=== PATIENT | female | born 1995 | race Caucasian/White ===

== ENCOUNTER 2024-10-26 18:49 | Observation (INO) ==
[2024-10-26] MEDS ORDERED: LACTATED RINGER'S 1,000 ML IV PRN (18:53)
--- NOTE | 2024-10-26 19:43 | History & Physical Report ---
Date of Service October 26, 2024 Assessment & Plan (1) with 30 completed weeks gestation: (2) Elevated blood pressure affecting in third trimester, antepartum: Plan Pressures are not and have not been in the severe range, although higher for her than typical. 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 She does not currently have any severe features. she does not have any other reasons for elevated transminases (ie hepatitis). she like has pet. Will be checking a protein /overhead crane truck loader ratio. Check bile acids given itchy hands/feet although these will not be back for 7-10 days. Could potentially have cholestasis that have elevated liver functions. fetus category one. No evidence of labor. Plan to repeat labs in 6 hours and see where trending and monitor blood pressures closely. If stable and not trending up, consider keepin g here and monitoring overnight, repeating labs every 6-12 hours. If trending up, will need to discuss with mfm and consider transfer. Explained situation to patient and her SO who express understanding of the situation. Do not have a good explanation of the 20 minutes of symptoms she had earlier. REsolved, have not recurred, imaging negative for neck/head issues. ? anxiety? Cannot explain elevated troponin either (although barely elevated ). If this continues to rise, will probably have to transfer to higher level of care considering . 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 She had her blood pressure taken at school and was found to be 151/101 at the highest. She notes at her last pnv her pressure was a bit high (134/87) and was advised to monitor her blood pressures. She presented to the Ed where her blood pressure was 150/90. Symptoms had resolved by time she was in ED. She had a neck and head CT both read negative. EKG showed sinus bradycardia. Labs showed h/h 14.9/43.1, plts 273, nl wbc, overhead crane truck loader 0.73, adt 55 (39, alt 96 (52). Troponin was drawn in the ED 16.7 (14). Pateint transferred to labor and delivery. Patient notes she feels well now with no complaints. She notes she did not have and does not have a villatoro, vision clear, no n/v today (but more nauseated over the weekend), some slight swelling at times in the ankles, fingers. She notes she has alot of itching in the hands and feet (not necessarily palms/soles). Notes no labor sx. Notes good fm. Patient notes that her mother has a hx of preeclampsia. Her has been otherwise uncomplicated. and Delivery Plans hepatitis b non immune OB Labs: Blood Type A Positive 05/28/24 Antibody Screen NEGATIVE 05/28/24 Hgb 12.8 g/dl (12.0-16.0) 10/09/24 Hct 36.7 % (37.0-47.0) L 10/09/24 MCV 89.7 fL (80.0-100.0) 05/28/24 Plt Count 476 K/uL (130-400) H 05/28/24 Rubella IgG Antibody Immune (Immune) 05/28/24 Treponema pallidum Ab Negative (Negative) 10/09/24 Hep Bs Antigen Negative (Negative) 05/28/24 Hepatitis C Antibody Negative (Negative) 05/28/24 HIV 1&2 Ab/P24 Ag 4thGn Negative (Negative) 05/28/24 Glucose 1 Hr 50 gm 158 mg/dl (70-130) H 10/09/24 OB Optional Labs: Chlamydia trachomatis RNA Not Detected (NotDetected) 05/28/24 Neisseria gonorrhoeae RNA Not Detected (NotDetected) 05/28/24 Labs Reviewed: Declines genetics--mln 28 week 2 hr gtt wnl Allergies Allergy/AdvReac Type Severity Reaction Status Date / Time meperidine [From Demerol] Allergy Intermediate Rash Verified 10/26/24 18:17 Home Medications Medication Instructions Recorded Confirmed Type azelastine 137 mcg (0.1 %) nasal 1 spray intranasal BID 10/26/24 10/26/24 History spray citalopram 10 mg tablet 10 mg PO HS 10/26/24 10/26/24 History fluticasone propionate 50 1 spray intranasal BID 10/26/24 10/26/24 History mcg/actuation nasal spray,suspension vits,calcium 21-iron fum 1 tab PO HS 10/26/24 10/26/24 History 14 mg iron-folic acid 400 mcg tablet ( Complete) Patient History Medical History (Updated 10/26/24 @ 19:52 by Dawna Flores MD, FACOG) Pap smear vag w ASC-US Seasonal allergies Sinus infection Depression with anxiety Varicella Surgical History S/P tooth extraction some baby teeth pulled S/P wisdom tooth extraction S/P tonsillectomy Family History Mother Breast calcifications Grandmother (Maternal) Osteoporosis Diabetes Coronary heart disease Myocardial infarction Hypertension Dementia Kidney disease Grandfather (Maternal) Diabetes Hypertension Kidney disease Father Depression Denies family history of Ovarian cancer Breast cancer Colorectal cancer Social History Smoking Status: Never smoker Second Hand Exposure: No; Do You Dip or Chew Tobacco: No; Hx Alcohol Use: No Hx Substance Use: No Preferred Language: Sinhala 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 Beliefs That Will Affect Care: None marital status: marital status details: Lewis Ellsworth (31) [phone] Current Living Situation: Spouse Current Living Situation Comment: lives with spouse, dog current occupational status: employed 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 Other Information That Helps Us Care for You: No Feels Safe at Home: Yes Safety Concerns: Feels Safe At This Time Assistive Devices: None OB History g1--present EXECUTIVE SOUS CHEF History noncontributory Physical Exam Constitutional: WD/WN, vitals as above Gastrointestinal (Abdomen): soft, gravid, nt no ruq pain Neurologic: patellar DTR's 2+ bilat, sensation intact (no clonus) Psychiatric: A+Ox3, euthymic affect Genitourinary: cx--deferred toco--none efm--120s with mod variability, accels present, no decels Results & Data Vital Signs (Past 12 Hours) Vital Signs Temp Pulse Resp BP 10/26/24 19:38 46 L 143/85 H 10/26/24 19:26 36.7 C 20 Coding Level of Care Code None Diagnoses with 30 completed weeks gestation Z3A.30 Elevated blood pressure affecting in third trimester, antepartum O16.3
[2024-10-26 20:45] LABS: Total Protein Urine Random 56.3 mg/dl (0-11.9)
[2024-10-26 20:50] LABS: Creatinine Urine Random 18.5 mg/dl
[2024-10-26 22:59] LABS: Basophils # (auto) 0.05 K/uL (0.00-0.20); Basophils % (auto) 0.5 %; Eosinophils # (auto) 0.08 K/uL (0.00-0.50); Eosinophils % (auto) 0.8 %; Hematocrit (blood only) 39.7 % (37.0-47.0); Hemoglobin 13.7 g/dl (12.0-16.0); Immature Granulocytes # (auto) 0.12 K/uL (0.01-0.20); Immature Granulocytes % (auto) 1.2 %; Lymphocytes # (auto) 2.69 K/uL (1.20-3.40); Lymphocytes % (auto) 27.4 %; Mean Corpuscular Hemoglobin 31.2 pg (25.0-34.0); Mean Corpuscular Hgb Conc 34.5 g/dL (32.0-36.0); Mean Corpuscular Volume 90.4 fL (80.0-100.0); Mean Platelet Volume 12.6 fL (9.4-12.4); Monocytes # (auto) 0.97 K/uL (0.11-0.59); Monocytes % (auto) 9.9 %; Neutrophils # (auto) 5.92 K/uL (1.40-6.50); Neutrophils % (auto) 60.2 %; Nucleated RBC # (auto) 0.18 K/uL (0.00-0.12); Nucleated RBC % (auto) 1.8 %; Platelet Count 247 K/uL (130-400); RDW Coefficient of Variation 14.1 % (11.5-14.5); RDW Standard Deviation 45.7 fL (36.4-46.3); Red Blood Count 4.39 M/uL (4.20-5.40); White Blood Count 9.83 K/ul (4.8-10.8)
[2024-10-26 23:16] LABS: Albumin Globulin Ratio 0.9 (0.9-2); Albumin Level 2.8 gm/dl (3.4-5.0); BUN Creatinine Ratio 15.6 (10-20); Bilirubin,Total 0.8 mg/dl (0.2-1.0); Calcium 8.9 mg/dl (8.6-10.3); Creatinine Clr Calc Pharmacy 121.8 ml/min; Potassium 3.6 mmol/L (3.5-5.1); Total Protein 5.8 gm/dl (6.0-8.3)
[2024-10-26 23:21] LABS: Troponin I High Sensitivity 15.7 pg/ml (0-14)
--- NOTE | 2024-10-26 23:34 | Obstetrical Progress Note ---
Date of Service October 26, 2024 Assessment & Plan (1) Pre-eclampsia during in third trimester, antepartum: Plan with prot/development rep of 3.0, has pet but does not have any severe features. Her lab values are all actually improved. Including troponin (denies ever having cp). Pressures are labile at times but mostly not in severe range, only one isolated. PLan continued observation. Repeat labs in 6 hours. Monitor bps closely. Fetus category one. Discussed the situation with the patient and SO and express understanding. If end up eventually d/c because not severe , will need close monitoring and labs potentially twice weekly. Understands that may not make it to term and if <35 weeks, will need transfer for NICU services. They are agreeable to the plan at present. Subjective Patient feels well. Denies and s/s of pet Pressures have been a bit labile but mostly good. 112/61-163/88 (isolated high) prot/development rep 3.0 repeat labs ast 95-->83 (52) alt 55-->46 (39) development rep--0.73-->0.64 troponin 16.7--> 15.7 plts 247 h/h--13.7/39.7 Physical Exam Constitutional: WD/WN, vitals as above Gastrointestinal (Abdomen): soft, gravid, nt, no ruq tenderness Neurologic: patellar DTR's 2+ bilat, sensation intact Psychiatric: A+Ox3, euthymic affect Genitourinary: toco--colton efm--130s wtih mod variability, accels to the 150s, no decels Results & Data Vital Signs (Past 12 Hours) Vital Signs Temp Pulse Resp BP 10/26/24 23:23 54 L 129/85 10/26/24 23:08 70 112/61 10/26/24 22:53 50 L 122/77 10/26/24 22:38 46 L 142/86 H 10/26/24 22:24 45 L 137/81 10/26/24 22:08 53 L 115/70 10/26/24 21:54 48 L 123/70 10/26/24 21:39 50 L 163/88 H 10/26/24 21:23 51 L 144/86 H 10/26/24 20:53 45 L 139/75 10/26/24 20:38 44 L 151/91 H 10/26/24 20:24 44 L 140/85 10/26/24 20:09 47 L 158/87 H 10/26/24 19:53 56 L 127/84 10/26/24 19:38 46 L 143/85 H 10/26/24 19:26 36.7 C 20 PG Care Time/CCT Total # of Minutes Spent Total Time Spent with Patient: Total time spent is greater than 50% in coordination of care (as documented) at patient's floor/unit and/or counseling patient: Coding Level of Care Code 01603 SUB INP/OBS CARE 07/18MIN Diagnoses Pre-eclampsia during in third trimester, antepartum O14.93
[2024-10-27 06:03] LABS: Hematocrit (blood only) 38.6 % (37.0-47.0); Hemoglobin 13.5 g/dl (12.0-16.0); Mean Corpuscular Hemoglobin 32.1 pg (25.0-34.0); Mean Corpuscular Volume 91.9 fL (80.0-100.0); Mean Platelet Volume 12.5 fL (9.4-12.4); Nucleated RBC # (auto) 0.15 K/uL (0.00-0.12); Nucleated RBC % (auto) 1.9 %; Platelet Count 244 K/uL (130-400); RDW Coefficient of Variation 14.3 % (11.5-14.5); RDW Standard Deviation 46.6 fL (36.4-46.3)
[2024-10-27 06:22] LABS: Albumin Globulin Ratio 0.9 (0.9-2); Albumin Level 2.6 gm/dl (3.4-5.0); BUN Creatinine Ratio 14.3 (10-20); Bilirubin,Total 0.8 mg/dl (0.2-1.0); Calcium 8.1 mg/dl (8.6-10.3); Creatinine Clr Calc Pharmacy 111.3 ml/min; Globulin 2.8 gm/dl (2.5-4.0); Potassium 3.7 mmol/L (3.5-5.1); Total Protein 5.4 gm/dl (6.0-8.3)
[2024-10-27 06:28] LABS: Troponin I High Sensitivity 12.6 pg/ml (0-14)
--- NOTE | 2024-10-27 07:13 | Obstetrical Progress Note ---
Date of Service October 27, 2024 Assessment & Plan (1) Pre-eclampsia during in third trimester, antepartum: Plan preeclampsia without severe sx. labs stable or slightly improved, not 2x normal. BPs very good overnight. She denies s/s. Fetus category one. Will feed patient this am and then see what her pressures do under evaluation and more activity. Disposition based on this. Given persistence of no severe features, could d/c home under very close obs--bp check and labs on . discussed that each visit would be a reevaluation and if she develops severe sx, would then transfer. She expresses understanding. Admission and Anticipated Discharge Date Admission Date: October 27, 2024 Subjective Patient feels well. Denies and s/s of pet. Rested overnight. Pressures have been a bit labile but mostly good. 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 Physical Exam Constitutional: WD/WN, vitals as above Cardiovascular: Extremities: + edema (tr); no calf tenderness Gastrointestinal (Abdomen): soft, gravid, nt no ruq pain Psychiatric: A+Ox3, euthymic affect Genitourinary: cx--deferred toco--colton efm--120s with mod variability, accels to 160s, no decels Results & Data Vital Signs (Past 12 Hours) Vital Signs Temp Pulse Resp BP 10/27/24 06:31 44 L 124/67 10/27/24 05:30 41 L 119/62 10/27/24 04:30 51 L 126/78 10/27/24 04:14 36.4 C L 10/27/24 03:30 64 108/69 10/27/24 02:30 67 103/67 10/27/24 01:30 73 101/61 10/27/24 00:30 60 91/58 L 10/26/24 23:33 36.7 C 10/26/24 23:23 54 L 129/85 10/26/24 23:08 70 112/61 10/26/24 22:53 50 L 122/77 10/26/24 22:38 46 L 142/86 H 10/26/24 22:24 45 L 137/81 10/26/24 22:08 53 L 115/70 10/26/24 21:54 48 L 123/70 10/26/24 21:39 50 L 163/88 H 10/26/24 21:23 51 L 144/86 H 10/26/24 20:53 45 L 139/75 10/26/24 20:38 44 L 151/91 H 10/26/24 20:24 44 L 140/85 10/26/24 20:09 47 L 158/87 H 10/26/24 19:53 56 L 127/84 10/26/24 19:38 46 L 143/85 H 10/26/24 19:26 36.7 C 20 PG Care Time/CCT Total # of Minutes Spent Total Time Spent with Patient: Total time spent is greater than 50% in coordination of care (as documented) at patient's floor/unit and/or counseling patient: Coding Level of Care Code 02594 OP VST EST LOW 20 MIN Diagnoses Pre-eclampsia during in third trimester, antepartum O14.93
[2024-10-27 08:20] VITALS: RESP 16; TEMP 98.2
[2024-10-27 10:47] VITALS: BP 120/82; PULSE 74
--- NOTE | 2024-10-27 11:12 | Obstetrical Progress Note ---
Date of Service October 27, 2024 Assessment & Plan (1) Pre-eclampsia during in third trimester, antepartum: Plan: See above. Admission and Anticipated Discharge Date Admission Date: October 27, 2024 Subjective I assumed care at 0830 after receiving signout from Dr. Flores. At that time Audrey was a 29yo with mild preeclampsia here for observation. She presented with transient neurologic symptoms yesterday (RIGHT hand numbness and perioral numbness and blurred vision) which spontaneously resolved prior to arrival at ER. Her initial BP's were hypertensive but not severe-range. Her labs showed transaminitis without reaching double-normal, and a protein creatinine ratio of 0.3, altogether leading to diagnosis of preeclam psia without severe features. Of note the patient also had a troponin checked by ER staff which was mildly elevated but trended back to normal already. She also had a creatinine of 0.7 and normal Hgb/Plts, though with likely hemoconcentration given a Hgb >14 in this nonsmoker. She was observed overnight here and has trended improvement in LFT's though not yet normalized. Her BP has ranged from low to mild hypertension overnight, somewhat labile, but never in severe range. Her single highest blood pressure was 163/88, and her current BP without any antihypertensive measures is 120/82. The plan as of this morning was to discharge home today with follow up labs and BP in office tomorrow, planning for delivery likely around 37wk or sooner if indicated. Unfortunately since the handover this morning, patient has called out for nurses twice to report recurrence of neurologic symptoms. She had ten minutes of blurred vision that resolved, and later, 20 minutes of LEFT hand numbness to the mid-forearm and [id number] spreading oral numbness (lips and tongue) that also have self-resolved. Patient denies any history of complex migraine or seizure and has never seen neurology. However, with pressing questions, she does admit there have been five times in her life that she experienced similar numbness prior to onset of a headache, therefore may in fact have undiagnosed complex migraine or classic migraine. The conundrum is that right now, in the setting of mild preeclampsia, it is difficult to ensure that these episodes are not heralds of severe preeclampsia. In the event that she *were* diagnosed with severe features, she is aware this would be an indication for delivery, and that she is at a gestational age earlier than [facility] performs planned births as we do not offer MFM or NICU services. I discussed her case with Dr. Silva at [facility]. Both myself and Dr. Silva agree it is not clear that this patient has severe features at this moment, and do not feel she must immediately begin magnesium therapy or be committed to delivery today. However, additional workup - possibly serial BP, Labs, and Neurologic consultation to clarify the etiology of her symptoms - should be undertaken. It makes the most sense for this workup to be initiated at a tertiary center capable of responding in any means necessary, including the possibility of delivering at 31wk. Therefore the patient is accepted for transfer to [facility] under Ricardo/Constantino and was advised of this plan. The patient is willing to transfer to [facility], but she is not interested in the saúl mmended ambulance transfer at this time. We discussed the pros and cons, and she (and FOB who was in the room every time I spoke with her) are aware that rapid worsening of her condition between hospitals could have severe consequences for herself and/or her baby. She elects to have the FOB drive her from [facility] to [facility]. She did sign an AMA form indicating that she was counseled on this and accepts the risks. In the event this patient is discharged from [facility] for further care, she is aware that our current plan is for her to be seen tomorrow in our clinic for BP and labs. She may need this plan adjusted pending the findings at [facility], and I will message the office to facilitate this further planning. Physical Exam Physical Exam: Gen: NAD, sitting semi-wooten Resp: Speech fluid, no resp distress Cor: Trace ankle edema Abd: Gravid/AGA, NT FHT: Cat 1 / Reactive NST Kempner: Quiet Ext: DTR 1+ Results & Data Vital Signs (Past 12 Hours) Vital Signs Temp Pulse Resp BP 10/27/24 10:45 74 120/82 10/27/24 09:47 79 137/89 10/27/24 09:17 80 111/75 10/27/24 08:49 66 113/77 10/27/24 08:15 55 L 139/90 10/27/24 07:14 98.2 F 59 L 16 123/81 10/27/24 06:31 44 L 124/67 10/27/24 05:30 41 L 119/62 10/27/24 04:30 51 L 126/78 10/27/24 04:14 97.5 F L 10/27/24 03:30 64 108/69 10/27/24 02:30 67 103/67 10/27/24 01:30 73 101/61 10/27/24 00:30 60 91/58 L 10/26/24 23:33 98.1 F 10/26/24 23:23 54 L 129/85 10/26/24 23:08 70 112/61 PG Care Time/CCT Total # of Minutes Spent Total Time Spent with Patient: Total time spent is greater than 50% in coordination of care (as documented) at patient's floor/unit and/or counseling patient: Coding Level of Care Code None Diagnoses Pre-eclampsia during in third trimester, antepartum O14.93
--- NOTE | 2024-10-29 09:04 | Discharge Summary ---
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 She had her blood pressure taken at school and was found to be 151/101 at the highest. She notes at her last pnv her pressure was a bit high (134/87) and was advised to monitor her blood pressures. She presented to the Ed where her blood pressure was 150/90. Symptoms had resolved by time she was in ED. She had a neck and head CT both read negative. EKG showed sinus bradycardia. 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 Troponin was drawn in the ED 16.7 (14). Pateint transferred to labor and delivery. Patient notes she feels well now with no complaints. She notes she did not have and does not have a villatoro, vision clear, no n/v today (but more nauseated over the weekend), some slight swelling at times in the ankles, fingers. She notes she has alot of itching in the hands and feet (not necessarily palms/soles). Notes no labor sx. Notes good fm. Patient notes that her mother has a hx of preeclampsia. Her has been otherwise uncomplicated. and Delivery Plans hepatitis b non immune OB Labs: Blood Type A Positive 05/28/24 Antibody Screen NEGATIVE 05/28/24 Hgb 12.8 g/dl (12.0-16.0) 10/09/24 Hct 36.7 % (37.0-47.0) L 10/09/24 MCV 89.7 fL (80.0-100.0) 05/28/24 Plt Count 476 K/uL (130-400) H 05/28/24 Rubella IgG Antibody Immune (Immune) 05/28/24 Treponema pallidum Ab Negative (Negative) 10/09/24 Hep Bs Antigen Negative (Negative) 05/28/24 Hepatitis C Antibody Negative (Negative) 05/28/24 HIV 1&2 Ab/P24 Ag 4thGn Negative (Negative) 12/05/24 Glucose 1 Hr 50 gm 158 mg/dl (70-130) H 10/09/24 OB Optional Labs: Chlamydia trachomatis RNA Not Detected (NotDetected) 05/28/24 Neisseria gonorrhoeae RNA Not Detected (NotDetected) 05/28/24 Labs Reviewed: Declines genetics--mln 28 week 2 hr gtt wnl Coding Level of Care Code None
[2024-11-02 00:03] LABS: Chenodeoxycholic Acid 22.7 umol/L (< OR = 3.1); Deoxycholic Acid 1.2 umol/L (< OR = 2.4); Total Bile Acids 79.9 umol/L (< OR = 6.8)
== END 2024-10-27 11:45 | disposition left against medical advice (07) ==
LOC: 4S1 18:49 → OPB 18:49 → 4S1 18:50